=== PATIENT | male | born 1970 | race Caucasian/White ===

== ENCOUNTER 2020-11-16 18:39 | Emergency (ER) | payer OTHER, SELFPAY ==
[2020-11-16 18:40] VITALS: BP 211/110; PULSE 115; RESP 18; TEMP 36.1; O2SAT 96; BMI 36.8
--- NOTE | 2020-11-16 18:55 | ED.VIS.GEN ---
History of Present Illness Chief Complaint: Lower Extremity Injury Informant: Patient Narrative: 50-year-old male states that he was at work tripped on a cord and sustained a inversion injury to the left foot. He notes pain laterally. He denies any ankle or leg pain. Past Medical History - Allergies and Home Meds Allergies/Adverse Reactions: Allergies No Known Allergies Allergy (Verified 11/16/20 18:40) Primary Care Physician: [facility] [NON-STAFF] - As soon as possible (or Workmans Compensation Doctor of choice) Past Medical History: None Surgical History: cholecystectomy Smoking Status: Former smoker Drugs: None Review of Systems General: Denies: Chills, Fever, Sweats Eyes: Denies: Visual changes - bilaterally, Diplopia ENT: Denies: Rhinorrhea, Sore throat Cardiovascular: Denies: Chest pain, Palpitations Respiratory: Denies: Dyspnea, Cough, Dyspnea on exertion Gastrointestinal: Denies: Abdominal pain, Nausea, Vomiting, Diarrhea, Melena, Hematochezia Genitourinary: Denies: Dysuria, Hematuria, Frequency Musculoskeletal: Reports: Extremity Pain. Denies: Back pain Skin: Denies: Rash, Wounds Neurological: Denies: Headache, Weakness, Numbness Physical Exam Vital Signs/Narrative: Vital Signs Temp Pulse Resp BP Pulse Ox 11/16/20 18:40 96.9 F L 115 H 18 211/110 H 96 Inital Vital Signs reviewed: Yes General: Well nourished, Well developed, No Acute Distress Head: Normocephalic, Atraumatic Eyes: Perrl, EOMI ENT: Moist mucous membranes, No rhinorrhea Neck: Supple, Nontender Cardiovascular: Regular rate, Regular rhythm, No murmurs Respiratory: No distress, CTA bilaterally, Chest nontender Abdomen: Soft, Nontender, Nondistended, Normal bowel sounds Back: Nontender, Normal Inspection Extremities: Tenderness - Tenderness and mild edema over the fifth metatarsal on the left. No medial lateral or posterior malleoli or pain. No fibular head pain no shaft of fibula or tibial pain Skin: Normal color, No rash Neurological: Alert, Oriented x3, Cranial nerves II-XII grossly intact, Normal Strength, Normal Sensation Psychological: Normal affect, Normal Mood Diagnostic/Tx/Re-eval Clinical Impression(s) from Imaging Studies Foot X-Ray 11/16/20 18:58 IMPRESSION: Mild diffuse soft tissue swelling of the foot. Otherwise, no acute radiographic abnormalities. Electronically Signed: Francisco Sheppard MD at 19:18 EDT Tel , Service support , - Medical Decision Making My interpretation of the foot films is no acute fracture. Radiologist agrees. Patient was offered Darrell wrap or crutches and he declines. The patient will ice Motrin. Follow-up with Workmen's Comp. ED Disposition - Plan for ED Patient: Disposition: Home or Assisted Living Diagnosis: Sprain of left foot Instructions: ED Foot Sprain Referrals: Clinic[facility] [NON-STAFF] - As soon as possible (or Workmans Compensation Doctor of choice)
--- NOTE | 2020-11-16 18:58 | RAD_ITS ---
INDICATION: injury EXAMINATION/TECHNIQUE: X-RAY - LEFT XR Foot Min 3 Views COMPARISON: None. FINDINGS: No acute fracture or malalignment. No blastic or lytic lesions. No degenerative changes are seen. Mild diffuse soft tissue swelling of the foot. Plantar and dorsal calcaneal enthesophytes. RAD/Foot min 3 Views IMPRESSION: Mild diffuse soft tissue swelling of the foot. Otherwise, no acute radiographic abnormalities. Electronically Signed: Francisco Sheppard MD at 19:18 EDT Tel , Service support ,
[2020-11-16 18:59] VITALS: BP 193/123; PULSE 119; RESP 18; O2SAT 98
[2020-11-16 19:46] VITALS: PULSE 76; RESP 16; O2SAT 97
== END 2020-11-16 19:47 | disposition home or self-care (01) ==
PROVIDERS: Emergency Provider Emergency Medicine; PCP Family Medicine
DX: S93.602A Unspecified sprain of left foot, initial encounter (principal); W22.8XXA Striking against or struck by other objects, initial encounter; Y93.9 Activity, unspecified; Y92.89 Other specified places as the place of occurrence of the external cause; Y99.0 Civilian activity done for income or pay; Z87.891 Personal history of nicotine dependence; Z90.49 Acquired absence of other specified parts of digestive tract
CPT/HCPCS: 73630; 99282

== ENCOUNTER 2025-05-25 11:37 | Emergency (ER) | payer BC, SELFPAY ==
[2025-05-25 11:38] VITALS: BP 165/102; PULSE 102; RESP 18; TEMP 35.9; O2SAT 96; BMI 37.3
--- NOTE | 2025-05-25 12:01 | CT_ITS ---
PROCEDURE: CT CHEST, ABD, PEL W/CONTRAST 05/25/2025 REASON FOR EXAM: FALL, RIGHT UPPER CHEST AND ABDOMEN PAIN TECHNIQUE: Chest, abdomen and pelvis CT with intravenous contrast. Coronal and Sagittal reconstruction series were provided. One or more dose reduction techniques were used (e.g., Automated exposure control, adjustment of the mA and/or kV according to patient size, use of iterative reconstruction technique. PATIENT PREPARATION: Per protocol CONTRAST: Isovue 370 VOLUME: 99mL RADIATION DOSE SUMMARY: CTDlvol: 27.39 mGy DLP: 2377.75 mGycm COMPARISON: None. FINDINGS: CT CHEST: Hardware: None. Lymph nodes: No lymphadenopathy. Heart and Vasculature: No cardiomegaly. Mild atherosclerotic calcifications of the coronary arteries. Lungs and Airways: Clear. Pleura: No pleural effusion or pneumothorax. Bones: No acute bony abnormalities. CT ABDOMEN/PELVIS: Liver: Hepatomegaly, 21 cm in length. Liver steatosis. Gallbladder: Status post cholecystectomy. Spleen: Mild splenomegaly, 13.4 cm Pancreas: Unremarkable. Adrenals: Unremarkable. Kidneys: No hydronephrosis. No nephrolithiasis. The kidneys are within normal limits. Bladder: The bladder is unremarkable. Reproductive Organs: Unremarkable. Bowel: No bowel wall thickening. No bowel obstruction. Appendix: Unremarkable. Lymph nodes: No lymphadenopathy. Vasculature: No aneurysm. Atherosclerotic calcifications. Peritoneum / Retroperitoneum: No free air or free fluid. Bones: No acute bony abnormalities. CT/CT Chest, Abd, Pel w/Contrast IMPRESSION: No acute abdominopelvic abnormalities. Hepatosplenomegaly. Reading Location: [facility]
--- NOTE | 2025-05-25 12:01 | RAD_ITS ---
PROCEDURE: SHOULDER MIN 2 VIEWS 05/25/2025 REASON FOR EXAM: FALL TECHNIQUE: Procedure Code: RADSH Modality: DX Procedure: SHOULDER MIN 2 VIEWS Laterality: Right COMPARISON: None. FINDINGS: BONES: Fracture in the greater tubercle of the left humerus with minimally displaced fracture fragment. JOINTS: No dislocation. The joint spaces are preserved. SOFT TISSUES: Soft tissue swelling of the shoulder. RAD/Shoulder min 2 Views IMPRESSION: Acute humeral greater tubercle fracture. Reading Location: [id number]
--- NOTE | 2025-05-25 12:02 | EDS_ITS ---
HPI History of Present Illness Chief Complaint: Chest Other Detail of Chief Complaint: Fall with right chest injury Informant: patient Narrative Narrative: Patient presents to the emergency department after sustaining a fall last evening around 9 PM. Patient states that he fell off the pool steps as he was going down and fell in the dirt. He landed on his right shoulder and injured his right ribs. Complains of pain with deep breath. Denies shortness of breath. Complains of pain in the shoulder with movement. He denies neck injury or head injury. He had no loss of consciousness. He had been drinking alcohol at the time. He has been ambulatory today. [facility] Medical History no medical history Home Medications ?Medication ?Instructions ?Recorded ?Last Taken ?Type hydrocodone-acetaminophen 5-325mg 1 tab PO Q4H PRN PRN Pain 2 days 05/25/25 Unknown Rx 5mg-325mg #10 TABLETS valsartan 320 1 tab PO DAILY 05/25/25 Unkn own History mg-hydrochlorothiazide 25 mg tablet Allergy/AdvReac Type Severity Reaction Status Date / Time No Known Allergies Allergy Verified 05/25/25 11:38 Family History no significant family his Surgical History no surgical history Social History Smoking Status: Never smoker ROS ROS ED Review of Systems ROS Unobtainable: other Constitutional Constitutional ED: Reports lethargy; Denies chills, fever(s), sweats or weight loss Eyes Eyes: Denies blurry vision, change in vision or diplopia ENT ENT ED: Denies rhinorrhea or sore throat Cardiovascular Cardiovascular: Reports chest pain; Denies orthopnea or racing heartbeat Respiratory/Chest Respiratory/Chest: Reports dyspnea; Denies cough, dyspnea on exertion, orthopnea or sputum Gastrointestinal Gastrointestinal: Reports abdominal pain; Denies diarrhea, nausea or vomiting Genitourinary Genitourinary ED: Denies dysuria, hematuria or urinary frequency Musculoskeletal Musculoskeletal: Reports other Details: Right shoulder pain ; Denies arthralgias, back pain, myalgias or neck pain Integumentary Denies abscess, Abrasions or rash Neurologic Neurologic: Denies headache(s) or weakness Psychiatric Psychiatric: Denies anxiety, depression or suicidal thoughts Endocrine Endocrinology: Denies polydipsia, polyphagia or polyuria Hematologic/Lymphatic Hematologic/Lymphatic: Denies easy bleeding, easy bruising or lymphadenopathy Allergic/Immunologic Allergic/Immunologic ED: Denies mouth swelling, tongue swelling or urticaria EXAM Physical Exam Const Vital Signs: 05/25/25 11:38 05/25/25 12:47 Temperature 96.7 F L Temperature Source Temporal Pulse Rate 102 H Respiratory Rate 18 Respiratory Effort Normal Non-Labored Blood Pressure 165/102 H Blood Pressure Mean 123 Pulse Ox 96 Oxygen Delivery Method Room Air Positive well nourished and well developed General Appearance ED: well developed and NAD HEENT Reports TM's clear and moist mucous membranes normocephalic and atraumatic; Negative for trauma or tenderness Tympanic Membrane ED: Yes TM's clear Eyes PERRL and EOMs intact bilaterally General Eye ED: Negative for pale conjunctiva or scleral icterus Neck no lymphadenopathy, supple and no JVD General: Negative for tenderness Chest Wall Negative for inspection of chest normal or palpation of chest normal Chest Narrative: Patient with tenderness over the right anterior chest wall that reproduces pain. No crepitus or subcutaneous emphysema noted. There is no ecchymosis or bruising. Chest: Negative for tenderness Resp normal respiratory effort and clear to auscultation bilaterally Effort and Inspection: Negative for respiratory distress or pain with movement Auscultation: Negative for rhonchi, wheezes or diminished lung sounds Cardio regular rate, regular rhythm, S1 normal heart sound, S2 normal heart sound and no murmurs Peripheral Pulses: pulses 2+ throughout GI normal to inspection, nondistended, normoactive bowel sounds, soft to palpation, non-tender, non-distended and no masses Back/Spine no CVA tenderness and no thoracic nor lumbar tenderness Extremity normal to inspection Extremity Narrative: Right shoulder-no deformity. Some pain with range of motion at the glenohumeral joint. There is no ecchymosis or bruising. He is neurovascular intact distally. General Extremety ED: Negative for edema General Extremity: Negative for edema Neuro oriented x3, CN's II-XII intact bilaterally, no sensory deficits noted and gait normal Sensorium / Orientation: awake, alert, oriented to person, oriented to place and oriented to time Motor Exam: strength 5/5 throughout and strength abnormal Psych mental status grossly normal Skin no rashes or lesions noted and no wounds MDM MDM MDM Narrative Medical decision making narrative: Patient presents with mechanical fall that occurred last evening. Complaining of chest and upper abdomen pain as well as right upper arm pain. Clinically looks well. IV line established. He was medicated morphine and Zofran. CBC with differential showed a white count of 11.5 with hemoglobin for 15.8 and platelet count of 195. Chemistries unremarkable. LFTs showed slightly elevated AST at 86 and ALT of 88. Total bilirubin was 1.75. Patient is aware of elevated liver enzymes and these have been followed by his primary care physician. I did obtain a CT of the chest and abdomen and pelvis which did not show any acute injuries. Patient also had x-rays of the right shoulder that showed a fracture of the proximal humerus tubercle. Patient was placed in a sling. He will be given work restrictions. He will be given a prescription for [place] for pain. He will be referred to orthopedics for follow-up at their request they would like to follow-up with Dr. Pope. Lab Data Attestation: I reviewed the patient's lab results. Labs: Laboratory Results - last 24 hr 05/25/25 12:10 WBC 11.5 H RBC 4.57 L Hgb 15.8 Hct 44.9 MCV 98.2 H MCH 34.6 H MCHC 35.2 RDW Std Deviation 50.3 H RDW Coeff of Pat 13.9 Plt Count 195 MPV 11.1 Immature Gran % (Auto) 0.600 Neut % (Auto) 69.9 Lymph % (Auto) 17.6 L [place] % (Auto) 9.6 Eos % (Auto) 1.5 Baso % (Auto) 0.8 Absolute Neuts (auto) 8.1 H Absolute Lymphs (auto) 2.03 Nucleated RBC % 0 Sodium 137 Potassium 4.3 Chloride 100 Carbon Dioxide 22.4 Anion Gap 15 BUN 18 Creatinine 1.11 Estim Creat Clear Calc 86.07 Est GFR (MDRD) Non-Af 77 BUN/Creatinine Ratio 15.9 Glucose 166 H Calcium 10.2 Total Bilirubin 1.75 H AST 86 H ALT 88 H Alkaline Phosphatase 77 Total Protein 8.4 Albumin 4.4 Globulin 4.0 Albumin/Globulin Ratio 1.1 Radiography Diagnostic Testing: Clinical Impression(s) from Imaging Studies Chest/Abdomen/Pelvis CT 05/25/25 12:01 IMPRESSION: No acute abdominopelvic abnormalities. Hepatosplenomegaly. Reading Location: [facility] Shoulder X-Ray 05/25/25 12:01 IMPRESSION: Acute humeral greater tubercle fracture. Reading Location: [facility] Right shoulder x-rays obtained 4 views interpreted by myself is fracture of the proximal humerus tubercle. Radiology in agreement. Discharge Plan Triage Chief Complaint: Chest Other ED Provider: Courtney Mohan Dx/Rx/DC Orders Clinical Impression: Closed right humeral fracture, Chest wall contusion Instructions: ED Chest Wall Contusion, ED Fracture, Upper Extremity Prescriptions: New hydrocodone-acetaminophen 5-325 mg tablet 1 tab PO Q4H PRN PRN (Reason: Pain) 2 Days Qty: 10 0RF No Action valsartan-hydrochlorothiazide 320-25 mg tablet 1 tab PO DAILY Primary Care Provider: AWILDA STEELE Referrals: Noe Pope DO [Med Staff - Active Staff, Orthopedics] - 3-5 Days AWILDA STEELE, MANAGER [employer] [Primary Care Provider, Family Practice] Print Language: Armenian Disposition Disposition: Home, Self Care
[2025-05-25] MEDS: 0.9% Normal Saline (1000mL) 1,000 ML 150 ML IV (12:20)
[2025-05-25 12:28] LABS: Hematocrit 44.9 % (40-54); Hemoglobin 15.8 g/dL (13.0-16.5); Immature Granulocytes Count 0.070 X10^3/uL (0.0-0.0); Mean Corp Hgb Conc 35.2 g/dL (32-36); Mean Corpuscular Volume 98.2 fL (80-94); Mean Platelet Vol. 11.1 fl (6.2-12.0); NRBC Flagged by Analyzer 0 % (0-5); Platelet Count 195 K/mm3 (150-450); RBC Distribution Width CV 13.9 % (11.6-14.6); RBC Distribution Width SD 50.3 fl (35.1-43.9); Red Blood Count 4.57 M/mm3 (4.6-6.2); White Blood Count 11.5 K/mm3 (4.4-11.0)
[2025-05-25 12:40] LABS: AST(SGOT) 86 U/L (<=37); Alanine Aminotransfer ALT/SGPT 88 U/L (<=46); Albumin, Serum 4.4 g/dL (3.5-5.0); Alkaline Phosphatase 77 U/L (40-129); Anion Gap 15 (5-15); BUN 18 mg/dL (4-19); BUN/Creat Ratio 15.9 RATIO (10-20); Calcium,Total 10.2 mg/dL (7.6-11.0); Carbon Dioxide 22.4 mmol/L (21.0-32.0); Chloride 100 mmol/L (98-108); Estimated Creatinine Clearance 86.07 ml/min (50-250); Globulin 4.0 g/dL (2.2-4.2); Glucose 166 mg/dL (70-99); Potassium 4.3 mmol/L (3.3-5.1)
[2025-05-25 14:09] VITALS: BP 183/95; PULSE 79; RESP 16; TEMP 35.9; O2SAT 96
== END 2025-05-25 14:13 | disposition home or self-care (01) ==
PROVIDERS: Emergency Provider Emergency Medicine; PCP Nurse Practitioner Family; Visit Provider Emergency Medicine
DX: S42.251A Displaced fracture of greater tuberosity of right humerus, initial encounter for closed fracture (principal); S20.211A Contusion of right front wall of thorax, initial encounter; R10.10 Upper abdominal pain, unspecified; W10.8XXA Fall (on) (from) other stairs and steps, initial encounter; Y92.34 Swimming pool (public) as the place of occurrence of the external cause
CPT/HCPCS: 71260; 73030; 74177; 80053; 85025; 96361; 96374; 96375; 99284; Q9967; A4216; J2405